=== PATIENT | male | born 1990 | race Caucasian/White ===

== ENCOUNTER 2024-07-01 23:28 | Emergency (ER) | payer OTHER ==
[~2024-07-01] VITALS: Ht 180.3 cm; Wt 81.6 kg
[2024-07-02] MEDS ORDERED: LORazepam 2 MG/ML VIAL IM STA (00:34)
[2024-07-02] MEDS ORDERED: HALOPERIDOL LACTATE 5 MG/ML AMPUL IM STA (00:34)
[2024-07-02] MEDS ORDERED: DIPHENHYDRAMINE HCL 50 MG/ML VIAL 1ML IM STA (00:35)
[2024-07-02 01:14] LABS: HEMATOCRIT 42.2 % (39.0-48.0); HEMOGLOBIN 14.6 g/dL (13-16.00); MEAN CELL VOLUME 80.4 fL (80.0-100.00); MEAN CORPUSCULAR HEMOGLOBIN 27.9 pg (27.00-32.0); MEAN CORPUSCULAR HGB CONC 34.7 g/dl (32.0-36.0); PLATELET COUNT 371 K/uL (150-450); RED BLOOD COUNT 5.24 M/uL (4.00-6.00); RED CELL DISTRIBUTION WIDTH 14.4 % (11.5-14.5)
[2024-07-02 01:29] LABS: CALCIUM 9.6 mg/dL (8.5-10.1); CREATININE SERUM 0.88 mg/dL (0.70-1.30); GFR 98.55; POTASSIUM 3.19 mEq/L (3.5-5.1)
== END 2024-07-02 09:08 | disposition home or self-care (01) ==
LOC: ER 23:28
DX: F41.1 Generalized anxiety disorder (principal); R07.89 Other chest pain